=== PATIENT | male | born 1970 | race Caucasian/White ===

== ENCOUNTER → 2022-02-07 10:53 | Outpatient (CLI) | payer OTHER, SELFPAY ==
--- NOTE | ~2022-02-07 | XR_ITS ---
EXAM: XR lumbar spine 2-3V DATE: 02/07/2022 11:06 HISTORY: Lower back pain . COMPARISON: None available. FINDINGS: 5 nonrib-bearing lumbar-type vertebral bodies. Pedicles intact. Normal vertebral body alig nment. Vertebral body heights preserved. Severe disc space narrowing at L5-S1. Multilevel marginal os teophytosis. L5-S1 facet hypertrophy, otherwise normal facets and posterior elements. No fracture or dislocation. IMPRESSION: Severe degenerative disc disease at L5-S1, with moderate facet arthropathy at the same le soto. Reviewed, dictated and finalized at location K. IMPRESSION: Severe degenerative disc disease at L5-S1, with moderate facet arth ropathy at the same level.
== END ==
PROVIDERS: PCP Internal Medicine; Visit Provider Nurse Practitioner Family
DX: M51.37 Other intervertebral disc degeneration, lumbosacral region (principal)
CPT/HCPCS: 72100

== ENCOUNTER → 2022-02-25 16:10 | Outpatient (CLI) | payer OTHER, SELFPAY ==
--- NOTE | ~2022-02-25 | MR_ITS ---
EXAMINATION: MR lumbar spine wo con DATE: 02/25/2022 17:05 INDICATION: Low back pain . TECHNIQUE: Magnetic resonance imaging (MRI) of the lumbar spine was performed without intravenous con trast. Sequences included sagittal T2-weighted FSE, sagittal T2-weighted FS FSE, sagittal T1-weighted FSE, and axial T2-weighted FSE. COMPARISON: None FINDINGS: The last fully formed and hydrated disc is designated L5-S1. Reactive marrow changes at L5- S1, otherwise the marrow signal is benign and homogenous. Grade 1 retrolisthesis of L5 on S1. Conus t erminates at L1-L2. Multilevel disc dehydration. The following disc levels are specifically discussed : T11-T12: The disc does not extend beyond the endplate margin. There is no facet joint osteoarthritis. There is no neural foraminal stenosis. There is no central canal stenosis. T12-L1: The disc does not extend beyond the endplate margin. There is no facet joint osteoarthritis. There is no neural foraminal stenosis. There is no central canal stenosis. L1-L2: The disc does not extend beyond the endplate margin. There is mild facet joint osteoarthritis. There is no neural foraminal stenosis. There is no central canal stenosis. L2-L3: The disc does not extend beyond the endplate margin. There is mild facet joint osteoarthritis. There is no neural foraminal stenosis. There is no central canal stenosis. L3-L4: Moderate diffuse bulge. There is moderate facet joint osteoarthritis. There is mild left neura l foraminal stenosis. There is no central canal stenosis. L4-L5: Moderate diffuse bulge. Focal circumferential oriented rent in the posterior annulus with tiny 2 mm inferiorly directed, central extrusion. There is moderate facet joint osteoarthritis. There is mild bilateral neural foraminal stenosis. There is no central canal stenosis. L5-S1: Large bulge with severe height loss and reactive marrow changes and a 4 mm inferiorly directed left paracentral extrusion. There is moderate facet joint osteoarthritis. There is moderate bilatera l neural foraminal stenosis. There is no central canal stenosis. IMPRESSION: 1. Severe degenerative disc disease at L5-S1 2. Moderate bilateral neural foraminal narrowing at L5-S1 3. Small extrusions at L4-5 and L5-S1, described above 4. Multilevel moderate facet arthropathy. Reviewed, dictated and finalized at location K.
== END ==
PROVIDERS: PCP Internal Medicine; Visit Provider Nurse Practitioner Family
DX: M54.50 Low back pain, unspecified (principal); M51.37 Other intervertebral disc degeneration, lumbosacral region; M48.07 Spinal stenosis, lumbosacral region; M12.88 Other specific arthropathies, not elsewhere classified, other specified site
CPT/HCPCS: 72148

== ENCOUNTER → 2023-08-09 08:26 | Outpatient (CLI) | payer OTHER, SELFPAY ==
--- NOTE | ~2023-08-09 | MR_ITS ---
MRI of the lumbar spine Clinical History: Radiculopathy Technique: Axial T2-weighted images, and sagittal T1-weighted, T2-weighted, and and T2 fat-sat images were acquired. COMPARISON: 02/25/2022 Findings: There is no fracture or subluxation of the lumbar spine. Vertebral bodies maintain normal h eight and alignment. No suspicious bone marrow signal reality seen. At L1-L2 and L2-L3, intervertebral discs maintain normal signal and position. No disc bulge or hernia tion T levels. There are mild facet joint degenerative changes at these levels. No spinal canal steno sis or neural foraminal narrowing at these levels. At L3-L4, there is minimal disc bulge with mild facet arthropathy. No central canal stenosis or neura l foraminal narrowing. At L4-L5, there is minimal disc bulge and mild facet arthropathy. No central canal stenosis or neural foraminal narrowing. L5-S1, there is advanced degenerative disc narrowing. There is minimal disc bulge and mild facet arth ropathy. No central canal stenosis or neural foraminal narrowing. Paravertebral soft tissues are unremarkable. Impression: Mild degenerative spondylosis, as above. Reviewed, dictated and finalized at [facility]. HANDLER Impression: Mild degenerative spondylosis, as above.
== END ==
PROVIDERS: PCP Internal Medicine; Visit Provider Internal Medicine
DX: M47.26 Other spondylosis with radiculopathy, lumbar region (principal)
CPT/HCPCS: 72148

== ENCOUNTER 2023-10-21 12:37 | Emergency (ER) | payer OTHER, SELFPAY ==
--- NOTE | ~2023-10-21 | CT_ITS ---
EXAMINATION: CT abdomen pelvis w con DATE: 10/21/2023 17:46 INDICATION: Right upper quadrant and lower abdominal pain. Nausea and diarrhea. TECHNIQUE: Computed tomography (CT) of the abdomen and pelvis was performed with 100 mL Omnipaque-350 intravenous contrast. Automated exposure control and iterative reconstruction technique were employe d. The dose-length product was 977.72 mGy-cm. COMPARISON: 11/24/2013 FINDINGS: Mild discoid atelectasis in the left lower lobe. Heart size is normal. No pericardial or pleural effu ian. Liver, gallbladder, spleen, pancreas, bilateral adrenal glands and right kidney are normal. 1.7 cm left renal cyst. Mild to moderate diverticulosis along the descending and sigmoid colon without a djacent from 3 change to suggest diverticulitis. Normal appendix. No bowel obstruction. There are loraine e fatty infiltration of the wall of the terminal ileum which can be seen in response to chronic infla mmation such as in the setting of Crohn's disease. No inflammatory stranding or hyperemia in the surr ounding fat to suggest an acute enteritis/ileitis. Bladder possibly 1 cm enhancing nodule at the blad zhao outlet which could represent nodular extension of the mildly enlarged prostate. Small fat-contain ing bilateral inguinal hernias. No free intraperitoneal gas or fluid. No pathologically enlarged abdo aramis or pelvic lymphadenopathy. Mild to moderate lower thoracic and moderate to severe lumbosacral s pondylosis with mild intervening lumbar spondylosis. IMPRESSION: 1. No acute intra-abdominal/pelvic process. 2. There is fatty infiltration of the wall of the terminal ileum which can be seen secondary to chron ic inflammation such as in Crohn's disease. No surrounding inflammatory stranding to suggest an acute ileitis/enteritis. 3. 1 cm enhancing nodules at the floor of the bladder most likely nodular extension the underlying mi ldly enlarged prostate with bladder neoplasm cannot be absolutely excluded and would correlate with u rinalysis and consider cystoscopy. 4. Small bilateral fat-containing inguinal hernias. Reviewed, dictated and finalized at location A. [employer] IMPRESSION: 1. No acute intra-abdominal/pelvic process. 2. There is fatty infiltration of the wall of the terminal ileum which can be s een secondary to chronic inflammation such as in Crohn's disease. No surroundin g inflammatory stranding to suggest an acute ileitis/enteritis. 3. 1 cm enhancing nodules at the floor of the bladder most likely nodular exten ian the underlying mildly enlarged prostate with bladder neoplasm cannot be ab solutely excluded and would correlate with urinalysis and consider cystoscopy. 4. Small bilateral fat-containing inguinal hernias.
[2023-10-21 13:26] VITALS: BP 109/66; PULSE 121; RESP 20; TEMP 36.6; O2SAT 98
[2023-10-21 16:51] VITALS: BP 111/74; PULSE 126; RESP 18; O2SAT 98
[2023-10-21 16:54] LABS: Basophils Percent Auto 0.2 % (0.2-1.2); Eosinophils Percent Auto 0.1 % (0-4.4); Hematocrit 50.2 % (42.0-52.0); Hemoglobin 17.1 g/dL (14.0-18.0); Immature Granulocyte Absolute 0.03 K/mm3 (0.00-0.031); Immature Granulocyte Percent A 0.3 % (0-0.5); Lymphocytes Absolute Auto 0.35 K/mm3 (0.9-3.2); Lymphocytes Percent Auto 3.4 % (18.3-44.2); Mean Corpuscular HGB Conc 34.1 g/dl (32-36); Mean Corpuscular Hemoglobin 30.3 pg (26-34); Mean Platelet Volume 9.3 fl (7.4-10.4); Monocytes Absolute Auto 0.4 K/mm3 (0.1-0.6); Monocytes Percent Auto 3.8 % (2.6-8.5); Neutrophils Absolute Auto 9.5 K/mm3 (1.3-6.7); Neutrophils Percent Auto 92.2 % (45.5-73.1); Platelet Count Result 195 k/mm3 (150-375); Red Blood Count 5.64 M/mm3 (4.6-6.20); Red Cell Distribution Width 12.3 % (11.5-14.5); White Blood Count 10.3 K/mm3 (4.5-10.0)
--- NOTE | 2023-10-21 16:56 | ED.ABDPAIN ---
HPI - Abdominal Pain General Chief Complaint: Abdominal Pain Stated Complaint: abdomen pain Time Seen by Provider: 10/21/23 16:57 History of Present Illness HPI narrative: Bernabe is a 53-year-old male patient presenting to the ER today with complaints of right-sided upper and lower abdominal pain that just started yesterday. He reports the symptoms have gradually gotten worse. Rates his pain currently a 6/10. Is having associated nausea and diarrhea. Has felt feverish and reports chills as well. Denies any URI symptoms. No history of IBS, ulcerative colitis, Crohn's, or cholelithiasis/cholecystitis Related Data Allergies Allergy/AdvReac Type Severity Reaction Status Date / Time Sulfa (Sulfonamide Allergy Mild Hives Verified 10/21/23 18:32 Antibiotics) Review of Systems Review of Systems: Pertinent positives per HPI. Patient denies any rash, headache, visual changes, dizziness, cough, runny nose, sore throat, shortness of breath, chest pain, palpitations,vomiting, constipation, or any urinary issues. Exam Narrative: General: Well-developed, well nourished, in no apparent distress. Head: Normocephalic, atraumatic. Cardio: Regular rate and rhythm, s1 and s2 normal, no murmur appreciated. Resp: Clear to auscultation bilaterally, no rhonchi, rales, wheezing or rubs. Abdomen: Soft, pliable, bowel sounds present in all quadrants, tender to palpation over the right upper and right lower abdomen, no rebound tenderness, psoas, or jarring sign, no organomegly, no CVAT tenderness. Course Vital Signs Vital signs: Vital Signs Temperature 36.6 C 10/21/23 13:26 Pulse Rate 121 H 10/21/23 13:26 Respiratory Rate 20 10/21/23 13:26 Blood Pressure 109/66 10/21/23 13:26 Pulse Oximetry 98 10/21/23 13:26 Oxygen Delivery Room Air 10/21/23 13:26 Temperature 36.6 C 10/21/23 13:26 Pulse Rate 126 H 10/21/23 16:51 Respiratory Rate 18 10/21/23 16:51 Blood Pressure 111/74 10/21/23 16:51 Pulse Oximetry 98 10/21/23 16:51 Oxygen Delivery Room Air 10/21/23 13:26 MDM - Abdominal Pain MDM Narrative Medical decision making narrative: At the time of visit patient is resting comfortably on the exam table. Patient appears to be nontoxic. Labs: CBC shows white blood cell count of 10.3, H&H of 17.1 and hematocrit of 50.2, platelet counts 195, chemistry shows sodium level 136, potassium 3.7, chloride of 100, CO2 29, BUN of 19, creatinine 1.0, GFR is greater than 60, glucose is 135, liver function tests are within normal limits, lipase is 49. Urinalysis is negative for any sign of infection, blood, or protein. Diagnostics: CT abdomen pelvis with contrast shows 1. No acute intra-abdominal/pelvic process. 2. There is fatty infiltration of the wall of the terminal ileum which can be seen secondary to chronic inflammation such as in Crohn's disease. No surrounding inflammatory stranding to suggest an acute ileitis/enteritis. 3. 1 cm enhancing nodules at the floor of the bladder most likely nodular extension the underlying mildly enlarged prostate with bladder neoplasm cannot be absolutely excluded and would correlate with urinalysis and consider cystoscopy. 4. Small bilateral fat-containing inguinal hernias. Plan: I suspect patient has gastroenteritis. Discussed CT results with the patient and he will follow-up with his PCP for further evaluation. Will send in prescription for ondansetron for nausea. Instructed to take Imodium as needed for diarrhea as long as there is no blood in his stool. Supportive measures were discussed with the patient and they voiced understanding discharge instructions and agrees to treatment plan. Return precautions reviewed Differential Diagnosis Differential diagnosis: Likely abdominal pain, acute appendicitis, calculus of kidney, constipation, diverticulitis, gastroenteritis, pancreatitis and small bowel obstruction Lab Data 10/21/23 16:48 10/21/23 16:48
[2023-10-21 17:04] LABS: Alanine Aminotransferase 49 U/L (6-50); Albumin Level 4.8 g/dL (3.5-5.1); Alkaline Phosphatase 53 U/L (38-126); Anion Gap 7 mmol/L (8-16); Aspartate Amino Transferase 37 U/L (17-59); Bilirubin,Total 0.8 mg/dL (0.2-1.3); Blood Urea Nitrogen 19 mg/dL (9-20); Calcium 9.4 mg/dL (8.4-10.2); Carbon Dioxide 29 mmol/L (22-30); Chloride 100 mmol/L (98-107); Estimated CRCL calculation 83 ml/min; Estimated Glomerular Filt Rate > 60; Glucose 135 mg/dL (65-110); Lipase 49 U/L (23-300); Potassium 3.7 mmol/L (3.4-5.0); Sodium 136 mmol/L (137-145)
[2023-10-21] MEDS: SODIUM CHLORIDE 0.9% IV 1,000 ML 999 ML IV CONT (17:20)
[2023-10-21] MEDS: ONDANSETRON INJ 4 MG/2 ML VIAL IV PUSH (17:20)
[2023-10-21 18:09] LABS: Appearance Urine Clear (Clear); Bilirubin Urine Negative (Negative); Blood Urine Negative (Negative); Color Urine Yellow (Yellow); Glucose Urine UA Negative (Negative); Ketones Urine Negative (Negative); Leukocyte Esterase Ur Negative LEU/UL (Negative); Nitrate Urine Negative (Negative); Protein Urine Negative (Negative); Urobilinogen Urine 0.2 mg/dL (<2.0)
[2023-10-21 18:12] LABS: Add Urine Microscopic? NO; Specific Grav Ur 1.037 (1.001-1.035)
[2023-10-21 18:39] VITALS: BP 117/70; PULSE 122; RESP 17; O2SAT 98
== END 2023-10-21 18:41 | disposition home or self-care (01) ==
PROVIDERS: Student in an Organized Health Care Education/Training Program; Emergency Provider Nurse Practitioner Family; PCP Internal Medicine
DX: K52.9 Noninfective gastroenteritis and colitis, unspecified (principal)
CPT/HCPCS: 36415; 74177; 80053; 81003; 83690; 85025; 96361; 96374; 99284; J2405; J7030; Q9967

== ENCOUNTER 2024-08-28 05:58 | Day surgery (SDC) | payer OTHER, SELFPAY ==
[2024-08-17 12:22] VITALS: BMI 31.1
[2024-08-28 06:47] VITALS: BMI 31.6
[2024-08-28 06:48] VITALS: BP 133/98; PULSE 69; RESP 16; TEMP 36.1; O2SAT 96
--- NOTE | 2024-08-28 07:07 | P.PNAN_ITS ---
Anes - Initial Pre Proc Eval Procedure: Operation Date: 08/28/24 08:00 Proposed Procedures p Screening Colonoscopy - Storm Bain DO Date/Time: 08/28/24 07:07 Surgeon: Storm Bain DO Pre Op Diagnosis: Neoplasm Screening Patient Data Age: 54 Gender: M Height: 1.73 m Weight: 94.2 kg Last Vital Signs Temp 36.1 C L 08/28/24 06:48 Pulse 69 08/28/24 06:48 Resp 16 08/28/24 06:48 BP 133/98 H 08/28/24 06:48 Pulse Ox 96 08/28/24 06:48 O2 Del Method Room Air 08/28/24 06:48 Allergies Allergy/AdvReac Type Severity Reaction Status Date / Time Sulfa (Sulfonamide Allergy Mild Hives Verified 08/28/24 06:39 Antibiotics) Home Medications ?Medication ?Instructions ?Recorded ?Confirmed ?Type atorvastatin 20 mg tablet 20 mg PO DAILY 08/17/24 08/28/24 History cholecalciferol (vitamin D3) 25 25 mcg PO DAILY 08/17/24 08/28/24 History mcg (1,000 unit) capsule (Vitamin D3) fiber 2 tablet PO DAILY 08/17/24 08/28/24 History loratadine-pseudoephedrine ER 10 1 tablet PO DAILY 08/17/24 08/17/24 History mg-240 mg tablet,extended [id number] (Claritin-D 24 Hour) losartan 50 mg-hydrochlorothiazide 1 tablet PO DAILY 08/17/24 08/28/24 History 12.5 mg tablet tamsulosin 0.4 mg capsule 0.4 mg PO DAILY 08/17/24 08/28/24 History Patient hx anesthesia problems: none Family hx anesthesia problems: none Results Review: All pre-operative results and documents have been reviewed as part of the pre- operative evaluation. [facility] Past Medical History Medical History (Updated 08/28/24 @ 07:08 by Kash Landon DO) Hypertension Hyperlipidemia Social History Social History (Updated 08/28/24 @ 07:18 by Kash Landon DO) Smoking status: Former smoker Tobacco type: cigarettes Alcohol intake: current Drinks per week: 10 Alcohol use details: daily Substance use type: does not use Living arrangements: with family Spiritual care concerns: No Anes - Eval Final PreProcedure Day of Procedure 08/28/24 07:07 Patient weight: obese Heart: regular rate and rhythm Lungs: clear to auscultation Airway: Mallampati scale class II Neurological: alert and oriented Last oral intake: >/= 8 hours ASA classification: III Emergent: no Anesthetic plan: proceed Anesthesia type and monitoring: general GIVS and standard monitoring Results Review: All pre-operative results and documents have been reviewed as part of the pre- operative evaluation. Informed Consent: The patient's anesthetic plan and its attendant risks and benefits were discussed with the patient/family/POA. Questions were solicited and answers provided to the satisfaction of the patient/family/POA.
[2024-08-28] MEDS: LACTATED RINGERS 1,000 ML 150 ML IV CONT (07:22)
--- NOTE | 2024-08-28 07:42 | PM.IMHP ---
H&P: HPI History of Present Illness Date/Time: 08/28/24 07:42 Chief Complaint: screening for colorectal cancer Narrative: this is a 54-year-old man who presents for colonoscopy. His last colonoscopy was 10 years ago and was normal. See any hematochezia or melena. S family history colon cancer. Review of Systems Review of Systems: All systems reviewed & are unremarkable except as noted in HPI and below Constitutional: Constitutional: Denies chills, Denies fever(s), Denies headache(s) and Denies weight loss Eyes: Eyes: Denies change in vision ENT: Denies dizziness, Denies headache(s), Denies neck mass and Denies throat swelling Cardiovascular: Cardiovascular: Denies chest pain, Denies lightheadedness and Denies dyspnea Respiratory: Respiratory: Denies cough, Denies dyspnea and Denies wheezing Gastrointestinal: Gastrointestinal: Denies abdominal pain, Denies change in bowel habits, Denies nausea and Denies vomiting Genitourinary: Genitourinary: Denies hematuria and Denies dysuria Musculoskeletal: Musculoskeletal: Reports as per HPI Integumentary/Breasts: Skin/Breast: Reports as per HPI Neurologic: Denies dizziness and Denies headache(s) Allergic/Immunologic: Allergic/Immunologic: Denies throat swelling and Denies wheezing [facility] Past Medical History Medical History (Updated 08/28/24 @ 07:43 by Storm Bain DO) Hypertension Hyperlipidemia Social History Social History (Updated 08/28/24 @ 07:18 by Kash Landon DO) Smoking status: Former smoker Tobacco type: cigarettes Alcohol intake: current Drinks per week: 10 Alcohol use details: daily Substance use type: does not use Living arrangements: with family Spiritual care concerns: No Meds Home Medications and Allergies Home Medications ?Medication ?Instructions ?Recorded ?Confirmed ?Type atorvastatin 20 mg tablet 20 mg PO DAILY 08/17/24 08/28/24 History cholecalciferol (vitamin D3) 25 25 mcg PO DAILY 08/17/24 08/28/24 History mcg (1,000 unit) capsule (Vitamin D3) fiber 2 tablet PO DAILY 08/17/24 08/28/24 History loratadine-pseudoephedrine ER 10 1 tablet PO DAILY 08/17/24 08/17/24 History mg-240 mg tablet,extended [id number] (Claritin-D 24 Hour) losartan 50 mg-hydrochlorothiazide 1 tablet PO DAILY 08/17/24 08/28/24 History 12.5 mg tablet tamsulosin 0.4 mg capsule 0.4 mg PO DAILY 08/17/24 08/28/24 History Allergies Allergy/AdvReac Type Severity Reaction Status Date / Time Sulfa (Sulfonamide Allergy Mild Hives Verified 08/28/24 06:39 Antibiotics) Vital Signs Vital Signs - 24 hr 08/28/24 06:48 Temperature 97 F L Pulse Rate 69 Respiratory Rate 16 Blood Pressure 133/98 H Pulse Oximetry 96 Oxygen Delivery Room Air Exam Const: General: no acute distress and alert Orientation/consciousness: patient oriented x3 HENMT: Head: normocephalic and atraumatic Ears: hearing grossly normal bilaterally Face/Nose/Sinus: Normal nares present Mouth: Yes Normal oral and palatal mucosa present Eyes: Periorbital: periorbital findings normal Sclera: sclerae normal EOM: EOMs intact bilaterally Neck: Neck: normal visual inspection, no lymphadenopathy and trachea midline Chest: Chest palpation & inspection: normal inspection of the chest Resp: Effort & Inspection: normal respiratory effort Auscultation: clear to auscultation bilaterally Cardio: Jugular venous distension: no JVD Rate: regular rate Rhythm: regular rhythm Heart sounds: S1 normal heart sound present and S2 normal heart sound present Peripheral pulses: Peripheral pulses 2+ throughout GI: Inspection: normal to inspection GI Palp: Yes Soft to palpation, No Tenderness to palpation present (GI), No Guarding due to palpation present (GI) and No Rebound tenderness present Percussion: Yes normal to percussion Auscultation: normal bowel sounds : General: Yes no CVA tenderness Back/Spine/Pelvis: Back: no CVA tenderness Neuro: General: patient oriented x3, no focal motor deficits and CN's II-XI intact bilaterally Cognition (Neuro): normal cognition Speech: normal speech Motor exam (neuro): 5/5 motor strength present throughout Extrem: General: capillary refill normal and no clubbing, cyanosis or edema Assessment and Plan Assessment and plan (1) Screening for colorectal cancer: Code(s): Z12.11 - Encounter for screening for malignant neoplasm of colon; Z12.12 - Encounter for screening for malignant neoplasm of rectum Status: Acute Assessment and Plan: I have recommended colonoscopy. I have discussed the procedure, risks, benefits, and alternatives. Questions were answered. Patient is agreeable to proceed.
[2024-08-28 08:04] VITALS: BP 131/88; PULSE 78; RESP 14; O2SAT 100
[2024-08-28 08:14] VITALS: BP 123/87; PULSE 72; RESP 14; O2SAT 100
[2024-08-28 08:24] VITALS: BP 121/97; PULSE 63; RESP 15; O2SAT 100
--- NOTE | 2024-08-28 09:44 | WPDANESPN ---
Anes - Prog Note Post-Op Date/Time: 08/28/24 09:44 Cardiovascular status: normal Respiratory status: normal Airway patency: baseline Mental status: baseline Post-Op hydration status: normal Vital Signs: Last Vital Signs Temp 36.1 C L 08/28/24 06:48 Pulse 63 08/28/24 08:24 Resp 15 08/28/24 08:24 BP 121/97 H 08/28/24 08:24 Pulse Ox 100 08/28/24 08:24 O2 Del Method Room Air 08/28/24 08:24 Pain Score (VAS): 0 I/O: Intake & Output 08/27/24 08/28/24 08/28/24 23:59 07:59 15:59 Intake Total 200 Balance 200 Post-procedural complaints: none Patient Feedback: Patient satisfied with anesthetic care. Other Findings: Patient vital signs back to baseline. Patient denies nausea and vomiting. Patient's pain under control. Patient OK for discharge.
== END 2024-08-28 08:56 | disposition home or self-care (01) ==
PROVIDERS: PCP Internal Medicine; Visit Provider Surgery
PROC: 0DJD8ZZ Inspection of Lower Intestinal Tract, Via Natural or Artificial Opening Endoscopic (ICD-10-PCS; CPT 45378; principal; 2024-08-28 08:00)
DX: Z12.11 Encounter for screening for malignant neoplasm of colon (principal); K57.30 Diverticulosis of large intestine without perforation or abscess without bleeding
CPT/HCPCS: 45378

== ENCOUNTER 2025-03-12 09:55 | Outpatient (CLI) | payer OTHER, SELFPAY ==
--- NOTE | ~2025-03-12 | CT_ITS ---
EXAM: CT abdomen pelvis w con - 03/12/2025 10:30 CDT History: 54 years old Male with Hx of diverticulitis, LLQ pain, Constipation/Diarrhea TECHNIQUE: Multidetector CT of the abdomen and pelvis with intravenous contrast. Coronal and sagitta l reformats were also provided for review. Automatic exposure control was used for this study. CONTRAST: 100 cc of Optiray 350 was used for this study. COMPARISON: None Available. FINDINGS: VISUALIZED CHEST: Visualized lungs are clear. ABDOMEN and PELVIS: LIVER: Within normal limits. GALLBLADDER: No calcified gallstones. BILE DUCTS: No dilatation. SPLEEN: Within normal limits. PANCREAS: Within normal limits. ADRENAL GLANDS: Within normal limits. KIDNEYS and URETERS: No hydronephrosis or hydroureter. No nephroureterolithiasis. URINARY BLADDER: Within normal limits. STOMACH and BOWEL: No abnormal bowel wall thickening. No obstruction or pneumatosis. Colonic divertic ulosis, without diverticulitis. Normal appendix. REPRODUCTIVE ORGANS: Within normal limits. MESENTERY/PERITONEAL CAVITY: No free fluid or pneumoperitoneum. LYMPH NODES: No abdominal or pelvic lymphadenopathy. ABDOMINAL WALL: Bilateral fat-containing inguinal hernias. Fat-containing umbilical hernia. VASCULATURE: Within normal limits. MUSCULOSKELETAL: Multilevel degenerative changes of the spine. IMPRESSION: 1. No evidence of acute pathology in the abdomen and pelvis. 2. Colonic diverticulosis without fat stranding to suggest diverticulitis. Normal appendix. Reviewed, dictated and finalized at location A. IMPRESSION: 1. No evidence of acute pathology in the abdomen and pelvis. 2. Colonic diverticulosis without fat stranding to suggest diverticulitis. Nor mal appendix.
--- OUTSIDE RECORDS SUMMARY | 2025-03-12 10:02 | XMS_ITS | Patient Health Record ---
Author Organization [facility] Address [address], [place] [id number] Care Team Providers Care Gate Tender Name Role Phone KIKI MCGOWAN Primary Care Provider [phone] Reason For Referral No Information Medications Medication SIG (Take, Route, Frequency, Duration) Notes Start Date End Date Status Augmentin 1 po bid Augmentin 875 mg-125 mg tablet; COMMENTS : ; 03/03/2015 Active Clarinex-D 12 Hour Clarinex-D 12 HOUR 2.5 mg-120 mg tablet,extended release; COMMENTS : ; 03/03/2015 Active Social History Social History Additional Details Category Social Info Options Details MigratedSocialHX MigratedSocialHX Smoking Status :denies smokingSmoking Status :Unknown if ever smoked([id number]) Problems Problem Type SNOMED Code ICD Code Onset Dates Problem Status W/U Status Risk Notes Problem URI ([id number]) URI (465.9) 03/03/2015 Active confirmed gio-URI Plan Of Treatment No Information Insurance Providers Payer Name Payer Address Payer Phone Subscriber Number Group Number Insured Name Patient Relationship to Insured Coverage Start Date Coverage End Date [facility] [address] [place] [phone] [id number] Bernabe Puentes Self - patient is the insured
--- OUTSIDE RECORDS SUMMARY | 2025-03-12 10:02 | XMS_ITS | Clinical Summary ---
Author Organization [facility] [employer] Address [address] [place] [address] Care Team Providers Care Senior Genetic Counselor Name Role Phone Coco Steiner MD Primary Care Provider [phone] Source Comments [facility],non-owned Affiliates and Associated Physician Practices is amultiple site organization consisting of ambulatory clinics and hospital sitesin [place], [place], [place] and [place]. This disclosure is being madepursuant to the Care Everywhere program and may not contain all information available regarding this patient. Last updated 18.[facility] [employer] Allergies Active Allergy Reactions Criticality Noted Date Comments Sulfa Drugs 06/19/2011 Medications * Be aware that medications may not be up to date on this document. Alwaysverify current medications with the patient. loratadine-pseud oephedrine 12hr (CLARITIN-D 12 HOUR) 5-120 MG tablet Take 1 tablet by mouth 2 times daily Active Probiotic Product (PROBIOTIC & ACIDOPHILUS EX ST PO) Active Simethicone (PHAZYME) 125 MG chew tablet Take 125 mg by mouth 4 times daily as needed for Gas Pain Active Family History Medical History Relation Name Comments Hypertension Mother Relation Name Status Comments Father Mother Alive Social History Tobacco Use Types Packs/Day Years Used Date Smoking Tobacco: Never Smokeless Tobacco: Never Alcohol Use Standard Drinks/Week Comments Yes 0 (1 standard drink = 0.6 oz pur e alcohol) occasionally Sex and Gender Information Value Date Recorded Sex Assigned at Not on file 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 Gender Identity Not on file Sexual Orientation Not on file Last Filed Vital Signs Vital Sign Reading Time Taken Comments Blood Pressure 118/82 01/06/2018 9:34 AM CDT Pulse 71 01/06/2018 9:34 AM CDT Temperature 36.9 C (98.5 F) 01/06/2018 9:34 AM CDT Respiratory Rate 18 01/06/2018 9:34 AM CDT Oxygen Saturation 97% 01/06/2018 9:34 AM CDT Inhaled Oxygen Concentration - - Weight 81.6 kg (180 lb) 01/06/2018 9:34 AM CDT Height 177.8 cm (5' 10) 01/06/2018 9:34 AM CDT Body Mass Index 25.83 01/06/2018 9:34 AM CDT Plan of Treatment Health Maintenance Due Date Last Done Comments COLOGUARD (AGES 45-75) - COL ON CA SCREENING 1972 COLON MONITORING 1972 COLONOSCOPY - COLON CA SCREENING 1972 CT COLONOGRAPHY - COLON CA SCREENING 1972 Colorectal Cancer Screening 1972 FIT - COLON CA SCREENING 1972 FLEX SIG - COLON CA SCREENING 1972 LIPID TESTING 1972 HIV SCREENING 1987 HEPATITIS C SCREENING 03/17/1990 DTAP/TDAP/TD VACCINES (1 - Tdap) 1991 HEPATITIS B VACCINE (1 of 3 - 19+ 3-dose series) 1991 SCREENING FOR DIABETES 01/06/2018 PNEUMOCOCCAL VACCINE 50+ (1 of 1 - PCV) 2022 ZOSTER VACCINE (1 of 2) 2022 COVID-19 VACCINE (1 - 2023-2 5 season) 2024 DEPRESSION SCREENING 09/06/2024 INFLUENZA VACCINE (Season Ended) 2025 HIB VACCINE Aged Out No longer eligi ble based on patient's age to complete this topic HPV VACCINE Aged Out No longer eligi ble based on patient's age to complete this topic MENINGOCOCCAL (Group B) VACC INE SHARED DECISION-MAKING Aged Out No longer eligibl e based on patient's age to complete this topic MENINGOCOCCAL GROUPS A/C/Y/W VACCINE Aged Out No longer eligible b ased on patient's age to complete this topic Insurance [facility] Care Teams Senior Genetic Counselor Relationship Specialty Start Date End Date Coco Steiner MD PCP - General Internal Medicine 01/06/18
[2025-03-12 10:10] LABS: Hematocrit 46.4 % (40.0-54.0); Hemoglobin 15.8 g/dL (14.0-18.0); Immature Granulocyte Percent A 0.3 % (0.0-0.0); Lymphocytes Absolute Auto 1.96 K/mm3 (1.10-4.50); Mean Corpuscular HGB Conc 34.1 g/dL (32-36); Mean Corpuscular Hemoglobin 30.2 pg (27.0-31.0); Mean Corpuscular Volume 88.5 fL (78.0-102.0); Nucleated Red Blood Cells Absolute Auto 0.00 K/mm3 (0.00-0.00); Nucleated Red Blood Cells Perc 0.0 % (0-0.0); Platelet Count Result 192 K/mm3 (150-420); Red Blood Count 5.24 M/mm3 (4.70-6.10); White Blood Count 5.8 K/mm3 (4.8-10.8)
[2025-03-12 10:23] LABS: Alanine Aminotransferase 47 U/L (6-50); Albumin Level 4.2 g/dL (3.5-5.1); Alkaline Phosphatase 51 U/L (38-126); Anion Gap 6 mmol/L (4-12); Aspartate Amino Transferase 35 U/L (17-59); Bilirubin,Total 0.7 mg/dL (0.2-1.3); Blood Urea Nitrogen 11 mg/dL (9-20); Calcium 8.8 mg/dL (8.4-10.2); Carbon Dioxide 25 mmol/L (22-30); Chloride 106 mmol/L (98-107); Estimated Glomerular Filt Rate > 60; Glucose 90 mg/dL (65-110); Osmolality Calculated 283 mOsm/kg (285-295); Potassium 4.1 mmol/L (3.4-5.0); Sodium 137 mmol/L (137-145); Total Protein 6.9 g/dL (6.3-8.2)
== END 2025-03-12 09:56 | disposition home or self-care (01) ==
PROVIDERS: PCP Internal Medicine; Visit Provider Internal Medicine
DX: R10.32 Left lower quadrant pain (principal); K57.90 Diverticulosis of intestine, part unspecified, without perforation or abscess without bleeding
CPT/HCPCS: 36415; 74177; 80053; 83605; 85025; Q9967

== ENCOUNTER 2025-06-25 07:48 | Outpatient (CLI) | payer OTHER, SELFPAY ==
--- NOTE | 2025-06-25 07:54 | EST_ITS ---
Patient Info Name: Bernabe Puentes Age: 55 years : 1970 Gender: Male Ht: 67 in Wt: 210 lbs BSA: 2.16 m2 HR: 72 bpm BP: 122 / 82 mmHg Heart Rhythm: Sinus Rhythm Technical Quality: Good Exam Date: 06/25/2025 7:54 AM Patient Status: O Admit Date: 06/25/2025 Exam Type: CA stress test treadmill w NM A treadmill exercise stress test was performed. Staff Referring Physician: Coco Steiner MD Attending Provider: Coco Steiner MD Summary 1. 1. Negative Emanuel exercise stress test for ischemic ST changes by ECG criteria. 2. 2. Good functional capacity, achieving 10 METs of workload. 3. 3. Appropriate HR response to exercise. 4. 4. Appropriate HR recovery at 1 minute post exercise. 5. 5. Nuclear scan to follow and will be reported separately. Please correlate with it. History/Risk Factors Hypertension: Yes Dyslipidemia: Yes Protocol: Emanuel Stress ECG Details Stage: REST Duration (min): 1 min : 20 sec Speed (mph): 0.0 Grade (%): 0 HR (bpm): 72 SBP (mmHg): 122 DBP (mmHg): 82 METS: --- Stage: REST Duration (min): 13 min : 41 sec Speed (mph): 0.0 Grade (%): 0 HR (bpm): 89 SBP (mmHg): 122 DBP (mmHg): 82 METS: --- Stage: STAGE 1 Duration (min): 1 min : 0 sec Speed (mph): 1.7 Grade (%): 10 HR (bpm): 102 SBP (mmHg): 122 DBP (mmHg): 82 METS: --- Stage: STAGE 1 Duration (min): 2 min : 0 sec Speed (mph): 1.7 Grade (%): 10 HR (bpm): 107 SBP (mmHg): 122 DBP (mmHg): 82 METS: --- Stage: STAGE 1 Duration (min): 3 min : 0 sec Speed (mph): 1.7 Grade (%): 10 HR (bpm): 107 SBP (mmHg): 158 DBP (mmHg): 92 METS: --- Stage: STAGE 2 Duration (min): 1 min : 0 sec Speed (mph): 2.5 Grade (%): 12 HR (bpm): 119 SBP (mmHg): 158 DBP (mmHg): 92 METS: --- Stage: STAGE 2 Duration (min): 2 min : 0 sec Speed (mph): 2.5 Grade (%): 12 HR (bpm): 124 SBP (mmHg): 158 DBP (mmHg): 92 METS: --- Stage: STAGE 2 Duration (min): 3 min : 0 sec Speed (mph): 2.5 Grade (%): 12 HR (bpm): 130 SBP (mmHg): 164 DBP (mmHg): 92 METS: --- Stage: STAGE 3 Duration (min): 1 min : 0 sec Speed (mph): 3.4 Grade (%): 14 HR (bpm): 145 SBP (mmHg): 164 DBP (mmHg): 92 METS: --- Stage: STAGE 3 Duration (min): 2 min : 0 sec Speed (mph): 3.4 Grade (%): 14 HR (bpm): 151 SBP (mmHg): 164 DBP (mmHg): 92 METS: --- Stage: STAGE 3 Duration (min): 2 min : 15 sec Speed (mph): 3.4 Grade (%): 14 HR (bpm): 153 SBP (mmHg): 164 DBP (mmHg): 92 METS: --- Stage: RECOVERY Duration (min): 0 min : 44 sec Speed (mph): 0.0 Grade (%): 0 HR (bpm): 135 SBP (mmHg): 194 DBP (mmHg): 81 METS: --- Stage: RECOVERY Duration (min): 1 min : 44 sec Speed (mph): 0.0 Grade (%): 0 HR (bpm): 117 SBP (mmHg): 151 DBP (mmHg): 80 METS: --- Stage: RECOVERY Duration (min): 2 min : 44 sec Speed (mph): 0.0 Grade (%): 0 HR (bpm): 104 SBP (mmHg): 151 DBP (mmHg): 80 METS: --- Stage: RECOVERY Duration (min): 3 min : 44 sec Speed (mph): 0.0 Grade (%): 0 HR (bpm): 101 SBP (mmHg): 131 DBP (mmHg): 80 METS: --- Stage: RECOVERY Duration (min): 4 min : 44 sec Speed (mph): 0.0 Grade (%): 0 HR (bpm): 96 SBP (mmHg): 131 DBP (mmHg): 80 METS: --- Stage: RECOVERY Duration (min): 5 min : 44 sec Speed (mph): 0.0 Grade (%): 0 HR (bpm): 95 SBP (mmHg): 131 DBP (mmHg): 82 METS: --- Stage: RECOVERY Duration (min): 6 min : 19 sec Speed (mph): 0.0 Grade (%): 0 HR (bpm): 93 SBP (mmHg): 131 DBP (mmHg): 82 METS: --- Rest HR: 89 bpm Peak HR: 154 bpm Rest Sys BP: 122 mmHg Peak Sys BP: 194 mmHg Max Pred HR: 167 bpm % Max Pred HR: 92 % Target HR: 142 bpm Max RPP: 29,876 bpm*mmHg Leavitt Score: 4 Target HR Summary: Test terminated after reaching target heart rate (85% max predicted) BP Response: Normal blood pressure response Termination Reason: Fatigue Cardiac Symptoms: None Max ST Seg Deviation: 0.80 mm Total Time: 8 min : 15 sec Rest Workman BP: 82 mmHg Peak Workman BP: 81 mmHg Angina Score: None Total METS: 10.3 Resting ECG Sinus rhythm with sinus arrhythmia, low voltage in precordial leads. Stress ECG No abnormal ST/T wave changes with exercise. Arrhythmias Occasional PVCs. Report Signatures
--- OUTSIDE RECORDS SUMMARY | 2025-06-25 07:54 | XMS_ITS | Patient Health Record ---
Author Organization [facility] Address [address], [place] [id number] Care Team Providers Care Juke Box Mechanic Name Role Phone DR. KIKI MCGOWAN III Primary Care Provider Reason For Referral No Information Medications Medication [...] Status :denies smokingSmoking Status :Unknown if ever smoked([id number]) Problems Problem Type SNOMED Code ICD Code Onset Dates Problem Status W/U Status Risk Notes Problem URI ([id number]) URI (465.9) 03/03/2015 Active confirmed gio-URI Plan Of Treatment No Information Insurance Providers Payer Name Payer Address Payer Phone Subscriber Number Group Number Insured Name Patient Relationship to Insured Coverage Start Date Coverage End Date [facility] [address] [place] [address] [id number] Bernabe Puentes Self - patient is the insured
--- OUTSIDE RECORDS SUMMARY | 2025-06-25 07:54 | XMS_ITS | Clinical Summary ---
Author Organization [facility] Address [address] [place] [address] Care Team Providers Care Belt Operator Name Role Phone Coco Steiner MD Primary Care Provider [phone] Source Comments [facility],non-owned Affiliates and Associated Physician Practices is amultiple site organization consisting of ambulatory clinics and hospital sitesin [place], [place], [place] and [place]. This disclosure is being madepursuant to the Care Everywhere program and may not contain all information available regarding this patient. 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
--- OUTSIDE RECORDS SUMMARY | 2025-06-25 07:54 | XMS_ITS | Clinical Summary ---
Author Organization [facility] Address [address] [place] [id number] Care Team Providers Care Sewer Pipe Press Operator Name Role Phone Coco Steiner MD Primary Care Provider Allergies Active Allergy Reactions Criticality Noted Date Comments Sulfa (Sulfonamide Antibiotics) Swelling Reaction: Swelling, Sulfasalazine Swelling Medium 06/19/2011 Medications loratadine (CLARITIN) 10 mg tabletIndication s:Allergic Rhinitis Take 1 tablet (10 mg total) by mouth every morning 05/14/2017 Active FIBER CHOICE, INULIN, ORALIndications: constipation Take 1 tablet by mouth as needed None in more than a month 05/14/2017 Active Lactobac no.41/Bifidobact no.7 (PROBIOTIC-10 ORAL)Indications :Gut health Take 1 capsule by mouth every morning 05/14/2017 Active cholecalciferol (VITAMIN D3) 1,000 unit capsuleIndicatio ns:Vitamin D Deficiency Take 1 capsule (1,000 Units total) by mouth every morning None in past month/ will start taking again after Fall time change Active ALLERGY RELIEF,NASAL DECONGEST 10-240 mg per 24 hr tabletIndication s:Allergic Rhinitis Take 1 tablet by mouth every morning 1 03/14/2019 Active losartan-hydroCH LOROthiazide (HYZAAR) 50-12.5 mg per tabletIndication s:hypertension Take 1 tablet by mouth every morning 06/12/2024 Active tamsulosin (FLOMAX) 0.4 mg extended release capsuleIndicatio ns:benign prostatic hyperplasia with lower urinary tract sx Take 1 capsule (0.4 mg total) by mouth every morning 05/29/2024 Active atorvastatin (LIPITOR) 20 mg tabletIndication s:hyperlipidemia Take 1 tablet (20 mg total) by mouth every morning 06/07/2024 Active Active Problems Problem Noted Date Diagnosed Date Elevated PSA 06/09/2024 Abdominal bloating 08/20/2017 Small intestinal bacterial overgrowth 05/14/2017 Environmental allergies 05/14/2017 Diverticula, intestine 05/14/2017 Overview (12/17/2017): Description: with history of uncomplicated diverticulitis x 3 Irritable bowel syndrome 05/14/2017 Surgical History Surgery Date Site/Laterality Comments NC COLONOSCOPY FLX DX W/COLLJ SPEC WHEN PFRMD 09/06/2013 - 09/05/2014 Colonoscopy - 2013 - a few sigmoid diverticula (Added by TW Conv) HAND SURGERY Left Hand surgery x10 TONSILLECTOMY 09/06/1976 - 09/05/1977 COLON SURGERY Medical History Medical History Date Comments Diverticulitis of colon Irritable bowel syndrome Delayed emergence from general anesthesia PONV (postoperative nausea and vomiting) controlled with IV medication Family History Medical History Relation Name Comments Diabetes Father Family history of diabetes mellitus - (Added by TW Conv) Heart attack Father Family history of myocardial infarction - (Added by TW Conv) Hypertension Father Family history of hypertension - (Added by TW Conv) Hypertension Mother Family history of hypertension - (Added by TW Conv) Anesthesia problems Neg Hx Relation Name Status Comments Father Mother Social History Tobacco Use Types Packs/Day Years Used Date Smoking Tobacco: Former Cigarettes 1 6 1 990 - 1995 Passive Smoke Exposure: Past Smokeless Tobacco: Never Tobacco Cessation:Counseling Given: Not Answered Passive Exposure Comments:both parents smoked Alcohol Use Standard Drinks/Week Comments Yes 0 (1 standard drink = 0.6 oz pur e alcohol) socially AUDIT-C Answer Date Recorded Q1: How often do you have a drink containing alcohol? 4 or more times a week 03/15/2025 Q2: How many drinks containi ng alcohol do you have on a typical day when you are drinking? 1 or 2 Q3: How often do you have si x or more drinks on one occasion? Monthly 03/15/2025 Personal Safety Answer Date Recorded Have you ever been in or are you currently in a harmful physical or emotional relationship or is someone making you feel afraid or unsafe? Denies 03/15/2025 Sex and Gender Information Value Date Recorded Sex Assigned at Not on file Legal Sex Male 2:30 AM ENGINEERING MANAGER Gender Identity Male 08/12/2018 1:32 PM ENGINEERING MANAGER Sexual Orientation Not on file Obstetrics History Last Filed Vital Signs Vital Sign Reading Time Taken Comments Blood Pressure 135/98 03/15/2025 2:40 PM CDT Pulse 64 03/15/2025 2:40 PM CDT Temperature 36 C (96.8 F) 03/15/2025 12:55 PM CDT Respiratory Rate 20 03/15/2025 2:40 PM CDT Oxygen Saturation 99% 03/15/2025 2:40 PM CDT Inhaled Oxygen Concentration - - Weight 93 kg (205 lb) 03/15/2025 12:16 PM CDT Height 170.2 cm (5' 7) 07/14/2024 10:05 AM ENGINEERING MANAGER Body Mass Index 32.11 07/14/2024 10:05 AM ENGINEERING MANAGER Plan of Treatment Health Maintenance Due Date Last Done Comments Colon Cancer Screening-Colonoscopy 1970 Depression Screening 1970 Hepatitis C Screening 1970 Regular Well Visit/Exam 18-64 1990 Zoster Vaccine (1 of 2) 2022 Influenza Vaccine (#1) 2025 8, 05/01/2015 Prostate Cancer Screening-PSA 12/15/2026 12/15/2024 DTaP/Tdap/Td Vaccine (2 - Td or Tdap) 09/07/2027 09/07/2017 Hepatitis B Screening Completed 11/18/1995 , 06/21/1995, 05/21/1995 Pneumococcal vaccine <65 Aged Out No longer eligible based on patient's age to complete this topic Procedures Procedure Name Priority Date/Time Associated Diagnosis Comments PSA DIAGNOSTIC Routine 12/15/2024 9:07 AM CDT Elevated PSA from Last 3 Months or Most Recently Relevant to Health Maintenance Results * (ABNORMAL) PSA diagnostic (12/15/2024 9:07 AM CDT) PSA-Total 8.11(H) <=3.90 ng/mL Comment: Interpretive Data AGE SEX REFERENCE INTERVAL 0 minutes-150 years Female None 0 minutes-49 years Male None 50-59 years Male 0-3.90 60-69 years Male 0-5.40 70-79 years Male 0-6.20 80-150 years Male 0-6.20 The Aisha PSA Total assay procedure was used. Results from different manufacturers or methods may not be comparable. Serial testing should be performed using the same method. Current interpretive data last revised 22. Blood 12/15/2024 9:07 AM CDT 12/15/2024 9:14 AM CDT [facility] [place] Mirza Natarajan MD LAB BLOOD ORDERABLES [facility] [id number] [facility] [facility] [place] [address] from Last 3 Months or Most Recently Relevant to Health [place] [address] [facility] [address] [facility] [place] [address] [facility] [employer] Care Teams Sewer Pipe Press Operator Relationship Specialty Start Date End Date Coco Steiner MD [address] [place] [address] PCP - General 02/26/17
--- NOTE | 2025-06-25 13:20 | WPDCARIOSTRE ---
Nuclear Stress Test INDICATIONS Indications: Chest pain PROCEDURE Procedure Performed: Myocardial Perf Spect-Multi Procedure: Patient exercised on a standard Emanuel protocol and at peak exercise was injected with 32.9 mCi of cardiolyte. Multiple tomographic images were obtained. These are of good quality. There is no perfusion defect with stress imaging. A separate resting images were obtained after patient was injected with 10.7 mCi of cardiolyte. Multiple tomographic images were obtained. These are of good quality. There is no perfusion defect with rest imaging. CONCLUSION Conclusion: 1. Normal myocardial perfusion imaging demonstrating no perfusion defect with stress or rest imaging. 2. No evidence of reversible ischemia. 3. Left ventriculogram demonstrates normal measured ejection fraction of 64% with no wall motion abnormalities. 4. TID score 1.0 is not elevated.
== END 2025-06-25 07:49 | disposition home or self-care (01) ==
PROVIDERS: PCP Internal Medicine; Visit Provider Internal Medicine
DX: R07.9 Chest pain, unspecified (principal)
CPT/HCPCS: 78452; 93017; A9502; J2785